=== PATIENT | female | born 1970 | race Caucasian/White ===

== ENCOUNTER 2018-08-19 13:21 | Emergency (ER) | payer OTHER ==
[~2018-08-19] VITALS: Ht 157.5 cm; Wt 78.6 kg
[~2018-08-19 13:21] MED LIST: ASPIR 8181 MG PO; ATORVASTATIN CA40 MG PO; COREG3.125 MG PO; EFFIENT10 MG PO; ESSENTIAL DAIL1 EACH PO; LEVOTHYROXIN0.125 M1 PO; LEVOTHYROXIN0.137 M1 PO; LISINOPRIL-HCT1 EACH PO; MIRAPEX1 MG PO; NITROGLYCERIN0.4 MG SL; PLAVIX 75 MG TA75 M1 PO; TYLENOL325 MG PO; VERAPAMIL HCL180 M4 PO; VITAMIN B-12500 MCG PO
[2018-08-19] MEDS ORDERED: ARMOUR THYROID90 M1 PO (13:30)
[2018-08-19] MEDS ORDERED: PROGESTERONE200 MG PO (13:30)
[2018-08-19] MEDS ORDERED: ALDACTONE100 MG PO (13:30)
[2018-08-19] MEDS ORDERED: BENADRYL25 MG PO (13:31)
[2018-08-19] MEDS ORDERED: ULTRAM 50MG TAB50 MG PO (13:31)
[2018-08-19] MEDS ORDERED: EXCEDRIN CAPLE1 EACH PO (13:31)
[2018-08-19 14:09] LABS: ABSOLUTE BASOPHILS 0.1 thou/uL (0.0-0.2); ABSOLUTE EOSINOPHILS 0.1 thou/uL (0.0-0.7); ABSOLUTE LYMPHOCYTES 1.6 thou/uL (0.8-5.3); ABSOLUTE MONOCYTES 0.6 thou/uL (0.0-1.2); ABSOLUTE NEUTROPHILS 4.5 thou/uL (1.6-8.1); BASOPHILS 0.8 %; EOSINOPHILS 1.8 %; HEMATOCRIT 42.3 % (37.0-47.0); HEMOGLOBIN 13.9 gm/dL (12.0-15.0); LYMPHOCYTES 23.3 %; MCH 29.8 pg (26.0-34.0); MCV 90.3 fL (80.0-100.0); MONOCYTES 9.4 %; MPV 7.2 fl. (7.2-11.1); NUCLEATED RBCS 0 /100WBC; PLATELET COUNT* 280 thou/uL (150-400); POLYS 64.7 %; RBC 4.68 mil/uL (4.20-5.00); RDW-CV 14.7 % (10.5-14.5); WBC 6.9 thou/uL (4.0-11.0)
[2018-08-19 14:22] LABS: ANION GAP 10 mmol/L (7-16); BUN 17 mg/dL (7-18); CALCIUM 9.2 mg/dL (8.5-10.1); CHLORIDE 101 mmol/L (98-107); CO2 24 mmol/L (21-32); CREATININE 1.1 mg/dL (0.6-1.3); GLUCOSE 109 mg/dL (70-99); POTASSIUM 4.4 mmol/L (3.5-5.1); SODIUM 135 mmol/L (136-145)
[2018-08-19 14:34] LABS: ALBUMIN 3.8 g/dL (3.4-5.0); ALKALINE PHOSPHATASE 70 U/L (46-116); NT-PRO BRAIN NAT PEPTIDE 8 pg/mL (<300); SGOT 38 U/L (15-37); SGPT 60 U/L (30-65); TOTAL BILIRUBIN 0.2 mg/dL (<0.1-1.0); TOTAL PROTEIN 8.2 g/dL (6.4-8.2); TROPONIN-I LEVEL <0.06 ng/mL (<0.06)
[2018-08-19 15:20] LABS: URINE BILIRUBIN NEGATIVE (Negative); URINE BLOOD NEGATIVE (Negative); URINE CLARITY CLEAR; URINE COLOR YELLOW; URINE GLUCOSE-RANDOM NEGATIVE (Negative); URINE KETONES NEGATIVE (Negative); URINE LEUKOCYTES-REFLEX NEGATIVE (Negative); URINE NITRITE-REFLEX NEGATIVE (Negative); URINE PROTEIN NEGATIVE (Negative); URINE SPECIFIC GRAVITY 1.025 (1.005-1.030); URINE UROBILINOGEN 0.2 E.U./dl (0.2-1.0)
[2018-08-19] MEDS ORDERED: PRINIVIL5 MG PO (15:28)
[2018-08-19 15:42] VITALS: BP 105/69
--- NOTE | 2018-08-19 15:51 | EKG ---
[place] [address] ELECTROCARDIOGRAM REPORT Name: HAYLEE GUARDADO Room: [facility]#: [id number] Admission: 08/19/18 Attend Phys: Discharge: 08/19/18 Date of : 70 Report #: [id number] THIS REPORT FOR: //name// [facility] ED Test Date: 2018-08-19 Test Time: 13:32:20 Pat Name: HAYLEE GUARDADO Department: Room: Gender: F Logistics Intern: Kendy DOLL : 1970 Requested By: Meli Fernandez Order Number: [id number] MD: Viktor Olivera Measurements Intervals [place] Rate: 98 P: 25 MA: 136 QRS: -7 QRSD: 80 T: 10 QT: 334 QTc: 427 Interpretive Statements Sinus rhythm Probable left atrial enlargement Consider anterior infarct Baseline wander in lead(s) V3 Compared to ECG 05/08/2016 10:55:50 no change Electronically Signed On 08-19-2018 15:51:34 CDT by Viktor Olivera [email or web address] <ELECTRONICALLY SIGNED> By: Viktor Olivera MD, [facility] 08/19/18 1551 1332 1332 Viktor Olivera MD, [facility] /EPI
== END 2018-08-19 15:43 | disposition home or self-care (01) ==
LOC: M.ERS 13:21
PROVIDERS: Nurse Practitioner
DX: I10 Essential (primary) hypertension (principal); E03.9 Hypothyroidism, unspecified; M79.7 Fibromyalgia; G25.81 Restless legs syndrome; Z90.710 Acquired absence of both cervix and uterus; Z88.6 Allergy status to analgesic agent